=== PATIENT | male | born 1995 | race Caucasian/White ===

== ENCOUNTER 2023-05-11 15:44 | Inpatient (IN) | payer BC ==
[~2023-05-11 15:44] MED LIST: Iopamidol-370 76% 500 ML MDV (1 ML CHARGE) ONE
[2023-05-11] MEDS ORDERED: Acetaminophen 500 MG TAB ONE (16:09)
[2023-05-11] MEDS ORDERED: cefTRIAXone (ROCEPHIN) 2 GM VIAL ONE (16:09)
[2023-05-11] MEDS ORDERED: Ketorolac Tromethamine 30 MG (1 mL) VIAL ONE (16:09)
[2023-05-11] MEDS ORDERED: Sodium Chloride 0.9% 100 ML ONE (16:10)
[2023-05-11 16:23] LABS: #Eosinphils 0.1 thou/uL (0.0-0.7); #Monocytes 0.9 thou/uL (0.11-0.59); #Neutrophils 6.7 thou/uL (1.40-6.50); %Basophils 0.2 % (0.0-1.0); %Eosinophils 0.7 % (0.0-10.0); %Lymphocytes 9.4 % (21.0-51.0); %Monocytes 10.2 % (0.0-10.0); %Neutrophils 79.3 % (42.0-75.0); Hemoglobin 13.8 g/dL (14.0-18.0); Mean Corpuscular HGB CONC 33.7 g/dL (32.0-36.0); Mean Corpuscular Hemoglobin 29.8 pg (27.0-31.0); Mean Corpuscular Volume 88.6 fl (78.0-98.0); Mean Platelet Volume 10.4 fL (7.4-10.4); Platelet Count 281 10x3/uL (130-400); RBC Distribution Width 11.9 % (11.5-14.5); Red Blood Cell (RBC) Count 4.63 mill/uL (4.70-6.10); White Blood Cell (WBC) Count 8.5 10x3/uL (4.8-10.8)
[2023-05-11 16:37] LABS: INR-International Normal Ratio 1.1; PTT 34.7 sec (22.9-36.1); Prothrombin Time 14.1 sec (12.0-14.7)
[2023-05-11 16:38] LABS: D-Dimer Test 0.87 *mcg/mL (0.27-0.43)
[2023-05-11] MEDS ORDERED: Azithromycin 500 MG VIAL ONE (16:46)
[2023-05-11 16:48] LABS: ALT (SGPT) 11 U/L (8-55); AST (SGOT) 19 U/L (5-34); Albumin 4.3 g/dL (3.5-5.0); Alkaline Phosphatase 52 U/L (40-110); Anion Gap 17 mmol/L (10-20); BUN (Urea Nitrogen) 9 mg/dL (8.9-20.6); Bilirubin, Total 0.5 mg/dL (0.2-1.2); Calc. Creatinine Clearance 0 mL/min (70-130); Calcium 8.7 mg/dL (7.8-10.44); Carbon Dioxide 24 mmol/L (22-29); Chloride 101 mmol/L (98-107); Estimated GFR 99; Globulin 2.7 g/dL (2.4-3.5); Glucose 81 mg/dL (70-105); Potassium 3.6 mmol/L (3.5-5.1); Sodium 138 mmol/L (136-145); Troponin I Less than 0.010 ng/mL (< 0.028)
[2023-05-11 17:01] LABS: SARS-CoV-2 NAA Rapid Test Not Detected (NotDetected)
[2023-05-11] MEDS ORDERED: Ipratropium/Albuterol 3 ML NEB NEB PRN (18:16)
[2023-05-11] MEDS ORDERED: Ondansetron PF 4 MG/2 ML Vial IVP PRN (18:16)
[2023-05-11] MEDS ORDERED: Ondansetron ODT 4 MG TAB PO PRN (18:16)
[2023-05-11] MEDS ORDERED: Acetaminophen 325 MG TAB PO PRN (18:16)
[2023-05-11 20:13] VITALS: BMI 25.0
[2023-05-11 22:49] LABS: Legionella Urinary Ag Negative (Negative); Strep pneumo Urine Ag NEGATIVE (NEGATIVE)
[2023-05-12] MEDS ORDERED: AMPHETAMINE PO SCH (00:15)
[2023-05-12] MEDS ORDERED: DEXTROAMPHETAMINE PO SCH (00:15)
[2023-05-12 06:23] LABS: #Eosinphils 0.1 thou/uL (0.0-0.7); #Monocytes 0.9 thou/uL (0.11-0.59); #Neutrophils 5.9 thou/uL (1.40-6.50); %Basophils 0.3 % (0.0-1.0); %Eosinophils 1.1 % (0.0-10.0); %Lymphocytes 11.9 % (21.0-51.0); %Monocytes 11.4 % (0.0-10.0); Hematocrit 36.7 % (42.0-52.0); Hemoglobin 12.5 g/dL (14.0-18.0); Mean Corpuscular HGB CONC 34.1 g/dL (32.0-36.0); Mean Corpuscular Hemoglobin 30.2 pg (27.0-31.0); Mean Corpuscular Volume 88.6 fl (78.0-98.0); Mean Platelet Volume 10.7 fL (7.4-10.4); Platelet Count 241 10x3/uL (130-400); RBC Distribution Width 11.8 % (11.5-14.5); Red Blood Cell (RBC) Count 4.14 mill/uL (4.70-6.10); White Blood Cell (WBC) Count 7.8 10x3/uL (4.8-10.8)
[2023-05-12 06:50] LABS: Anion Gap 14 mmol/L (10-20); BUN (Urea Nitrogen) 7 mg/dL (8.9-20.6); Calc. Creatinine Clearance 130 mL/min (70-130); Calcium 8.1 mg/dL (7.8-10.44); Carbon Dioxide 23 mmol/L (22-29); Chloride 103 mmol/L (98-107); Estimated GFR 103; Glucose 127 mg/dL (70-105); Potassium 3.6 mmol/L (3.5-5.1); Sodium 136 mmol/L (136-145)
[2023-05-12] MEDS ORDERED: methylPREDNISolone Sod Succ 40 MG VIAL IVP SCH (09:00)
[2023-05-12] MEDS ORDERED: Lorazepam 1 MG TAB PO PRN (09:13)
[2023-05-12] MEDS ORDERED: Lorazepam 2 MG/ML VIAL IM PRN (09:13)
[2023-05-12] MEDS: Losartan 25 MG TAB PO SCH (09:29)
[2023-05-12] MEDS: Folic Acid 1 MG TAB PO SCH (09:30)
[2023-05-12] MEDS: Multivit, Therapeutic 1 TAB PO SCH (09:30)
[2023-05-12] MEDS: Thiamine 100 MG TAB PO SCH (09:30)
[2023-05-12 12:15] LABS: HIV (1/2) Antibody/Antigen Non-Reactive (NonReactive); HIV 1/2 INDEX 0.09 S/CO (<1.00)
[2023-05-12] MEDS: LevoFLOXacin 750 mg/D5W 750 MG in Premix 1 BAG IVPB SCH (13:01)
[2023-05-12] MEDS: methylPREDNISolone Sod Succ 40 MG VIAL IVP SCH ×2 (14:59→20:11)
[2023-05-12] MEDS ORDERED: Azithromycin 500 MG in Sodium Chloride 0.9% 250 ML 250 ML IVPB SCH (16:00)
[2023-05-12] MEDS ORDERED: cefTRIAXone\\ROCEPHIN 1 GM in Sodium Chloride 0.9% 100 ML IVPB SCH (16:00)
[2023-05-12] MEDS: Budesonide 0.5 MG/2 ML NEB INH SCH (19:46)
[2023-05-13] MEDS: methylPREDNISolone Sod Succ 40 MG VIAL IVP SCH ×4 (03:23→20:39)
[2023-05-13 04:48] LABS: #Monocytes 0.4 thou/uL (0.11-0.59); #Neutrophils 6.6 thou/uL (1.40-6.50); %Basophils 0.1 % (0.0-1.0); %Lymphocytes 9.3 % (21.0-51.0); %Monocytes 5.4 % (0.0-10.0); %Neutrophils 84.6 % (42.0-75.0); Hemoglobin 14.1 g/dL (14.0-18.0); Mean Corpuscular HGB CONC 33.6 g/dL (32.0-36.0); Mean Corpuscular Hemoglobin 29.4 pg (27.0-31.0); Mean Corpuscular Volume 87.7 fl (78.0-98.0); Mean Platelet Volume 10.8 fL (7.4-10.4); Platelet Count 294 10x3/uL (130-400); RBC Distribution Width 11.5 % (11.5-14.5); Red Blood Cell (RBC) Count 4.79 mill/uL (4.70-6.10); White Blood Cell (WBC) Count 7.8 10x3/uL (4.8-10.8)
[2023-05-13 05:11] LABS: Anion Gap 12 mmol/L (10-20); BUN (Urea Nitrogen) 15 mg/dL (8.9-20.6); Calc. Creatinine Clearance 141 mL/min (70-130); Calcium 9.3 mg/dL (7.8-10.44); Carbon Dioxide 25 mmol/L (22-29); Chloride 105 mmol/L (98-107); Estimated GFR 114; Glucose 145 mg/dL (70-105); Potassium 4.7 mmol/L (3.5-5.1); Sodium 137 mmol/L (136-145)
[2023-05-13] MEDS: Budesonide 0.5 MG/2 ML NEB INH SCH ×2 (08:01→19:31)
[2023-05-13] MEDS: Folic Acid 1 MG TAB PO SCH (08:09)
[2023-05-13] MEDS: Thiamine 100 MG TAB PO SCH (08:09)
[2023-05-13] MEDS: Losartan 25 MG TAB PO SCH (08:09)
[2023-05-13] MEDS: Multivit, Therapeutic 1 TAB PO SCH (08:09)
[2023-05-13] MEDS ORDERED: Lorazepam 1 MG TAB PO PRN (09:13)
[2023-05-13] MEDS: LevoFLOXacin 750 mg/D5W 750 MG in Premix 1 BAG IVPB SCH (12:27)
[2023-05-14] MEDS: methylPREDNISolone Sod Succ 40 MG VIAL IVP SCH ×3 (02:34→16:04)
[2023-05-14 04:35] LABS: #Monocytes 0.6 thou/uL (0.11-0.59); #Neutrophils 16.2 thou/uL (1.40-6.50); %Basophils 0.2 % (0.0-1.0); %Lymphocytes 5.1 % (21.0-51.0); %Monocytes 3.6 % (0.0-10.0); %Neutrophils 90.5 % (42.0-75.0); Hematocrit 42.4 % (42.0-52.0); Hemoglobin 14.2 g/dL (14.0-18.0); Mean Corpuscular HGB CONC 33.5 g/dL (32.0-36.0); Mean Corpuscular Hemoglobin 29.7 pg (27.0-31.0); Mean Corpuscular Volume 88.7 fl (78.0-98.0); Mean Platelet Volume 10.9 fL (7.4-10.4); Platelet Count 352 10x3/uL (130-400); RBC Distribution Width 11.9 % (11.5-14.5); Red Blood Cell (RBC) Count 4.78 mill/uL (4.70-6.10); White Blood Cell (WBC) Count 17.9 10x3/uL (4.8-10.8)
[2023-05-14 04:44] LABS: Anion Gap 15 mmol/L (10-20); BUN (Urea Nitrogen) 16 mg/dL (8.9-20.6); Calc. Creatinine Clearance 139 mL/min (70-130); Calcium 9.2 mg/dL (7.8-10.44); Carbon Dioxide 24 mmol/L (22-29); Chloride 103 mmol/L (98-107); Estimated GFR 112; Glucose 155 mg/dL (70-105); Potassium 4.6 mmol/L (3.5-5.1); Sodium 137 mmol/L (136-145)
[2023-05-14] MEDS: Budesonide 0.5 MG/2 ML NEB INH SCH (07:24)
[2023-05-14] MEDS: Multivit, Therapeutic 1 TAB PO SCH (08:37)
[2023-05-14] MEDS: Losartan 25 MG TAB PO SCH (08:37)
[2023-05-14] MEDS: Folic Acid 1 MG TAB PO SCH (08:38)
[2023-05-14] MEDS: Thiamine 100 MG TAB PO SCH (08:38)
[2023-05-14] MEDS ORDERED: Lorazepam 1 MG TAB PO PRN (09:13)
[2023-05-14] MEDS ORDERED: LevoFLOXacin 750 MG TAB PO SCH (12:00)
[2023-05-14 16:04] VITALS: BP 122/75; TEMP 98
[2023-05-15] MEDS ORDERED: Lorazepam 0.5 MG TAB PO PRN (09:13)
== END 2023-05-14 15:19 | disposition home or self-care (01) | DRG 198 ==
LOC: ERS 15:44 → T4-A 17:57 → OBSVTOIN 05-13 14:35
PROVIDERS: ADMIT Family Medicine; ATTEND Family Medicine
DX: J67.8 Hypersensitivity pneumonitis due to other organic dusts (principal); I10 Essential (primary) hypertension; F10.10 Alcohol abuse, uncomplicated; F90.9 Attention-deficit hyperactivity disorder, unspecified type; F32.A Depression, unspecified; Z79.899 Other long term (current) drug therapy; Z87.891 Personal history of nicotine dependence; Z11.52 Encounter for screening for COVID-19
CPT/HCPCS: 36415; 71045; 71275; 80048; 80053; 83605; 84145; 84484; 85025; 85379; 85610; 85730; 87040; 87070; 87081; 87205; 87389; 87449; 87633; 87899; 93005; 93306; 94640; 94760; 96375; 96376; G0378; J0456; J0696; J1885; J1956; J2920; J3490; J7626; Q9967